=== PATIENT | female | born 1970 | race Caucasian/White ===

== ENCOUNTER 2020-06-14 09:21 | Day surgery (SDC) | payer MEDICARE, MEDICAID ==
[2020-06-11 16:17] LABS: BASOPHILS % (AUTO) 1 % (0-1); EOSINOPHILS % (AUTO) 2 % (1-7); LYMPHOCYTES % (AUTO) 22 % (22-44); MEAN CORPUSCULAR HEMOGLOBIN 30.4 pg (27.0-34.8); MEAN CORPUSCULAR HGB CONC 34.4 g/dL (32.4-35.8); MEAN PLATELET VOLUME 8.3 fL (7.4-10.4); MONOCYTES % (AUTO) 6 % (2-9); NEUTROPHILS % (AUTO) 70 % (42-75); PLATELET COUNT 291 x10^3/uL (130-400); RED CELL DISTRIBUTION WIDTH 15.1 % (9.6-15.2)
[2020-06-11 16:28] LABS: INTERNATIONAL NORMALIZED RATIO 1.02 (0.93-1.1); PROTHROMBIN TIME 10.9 Seconds (9.6-11.5)
[2020-06-11 16:30] LABS: ALBUMIN 3.8 g/dL (3.4-5.0); ANION GAP 8 mmol/L (5-15); CALCIUM 9.2 mg/dL (8.5-10.1); CHLORIDE 106 mmol/L (98-107)
[2020-06-11 16:34] LABS: ALANINE AMINOTRANSFERASE 54 U/L (12-78); ALKALINE PHOSPHATASE 82 U/L (45-117); BILIRUBIN,TOTAL 0.4 mg/dL (0.2-1.0); CREATININE 0.88 mg/dL (0.55-1.02); TOTAL PROTEIN 7.8 g/dL (6.4-8.2)
[~2020-06-14] VITALS: Ht 177.8 cm; Wt 146.5 kg
[~2020-06-14 09:21] MED LIST: BUPIVACAINE/PF 0.25% ONE; EPINEPHRINE 1 MG/ML, 1ML ONE; HEPARIN 1,000 UNITS/ML, 10ML ONE
[2020-06-14] MEDS ORDERED: CEFOTETAN PMX 2GM/50ML 50 ML IVPB ONE (10:00)
[2020-06-14] MEDS ORDERED: FAMO40TA61 PO (10:18)
[2020-06-14] MEDS ORDERED: PRAS25CA PO (10:18)
[2020-06-14] MEDS ORDERED: MORPHINE ER PO (10:18)
[2020-06-14] MEDS ORDERED: TAMS-11 PO (10:18)
[2020-06-14] MEDS ORDERED: BACL20TA PO (10:18)
[2020-06-14] MEDS ORDERED: METF500T17 PO (10:18)
[2020-06-14] MEDS ORDERED: ALPH300C PO (10:18)
[2020-06-14] MEDS ORDERED: SENN-99 PO (10:18)
[2020-06-14] MEDS ORDERED: ONDA4TAB7 PO (10:18)
[2020-06-14] MEDS ORDERED: LAMO150T3 PO (10:18)
[2020-06-14] MEDS ORDERED: ROSU10TA2 PO (10:18)
[2020-06-14] MEDS ORDERED: NALTREXONE PO (10:18)
[2020-06-14] MEDS ORDERED: [UNRECOGNIZED DRUG - OTHER] PO (10:18)
[2020-06-14] MEDS ORDERED: DIAZ5TAB4 PO (10:18)
[2020-06-14] MEDS ORDERED: DOCU250C9 PO (10:18)
[2020-06-14] MEDS ORDERED: MULT-658 PO (10:18)
[2020-06-14] MEDS ORDERED: NALO25TA4 PO (10:18)
[2020-06-14] MEDS ORDERED: CHOL10003 PO (10:18)
[2020-06-14] MEDS ORDERED: CRAN500T3 PO (10:18)
[2020-06-14] MEDS ORDERED: [UNRECOGNIZED DRUG - MIXTURE] PO (10:18)
[2020-06-14] MEDS ORDERED: [UNRECOGNIZED DRUG - OTHER] SL (10:18)
[2020-06-14] MEDS ORDERED: LACTATED RINGERS 1,000 ML IV SCH (10:30)
[2020-06-14] MEDS ORDERED: CHLORHEXIDINE 15 ML UDC PO ONE (10:30)
[2020-06-14 10:42] VITALS: BP 127/84
[2020-06-14] MEDS ORDERED: MIDAZOLAM 1 MG/ML, 2ML ONE (11:20)
[2020-06-14] MEDS ORDERED: FENTANYL PF 250 MCG/5ML ONE ×3 (11:20→14:13)
[2020-06-14] MEDS ORDERED: NEOSTIGMINE 1 MG/ML, 10ML ONE (11:21)
[2020-06-14] MEDS ORDERED: GLYCOPYRROLATE 0.2MG/1ML, 5ML ONE (11:21)
[2020-06-14] MEDS ORDERED: ROCURONIUM 10MG/ML,5ML ONE ×2 (11:21→13:11)
[2020-06-14] MEDS ORDERED: DEXAMETHASONE 4 MG/ML, 1ML ONE (11:21)
[2020-06-14] MEDS ORDERED: ONDANSETRON 2MG/ML, 2ML ONE (11:21)
[2020-06-14] MEDS ORDERED: PROPOFOL 10 MG/ML, 20ML ONE (11:21)
[2020-06-14] MEDS ORDERED: CEFOTETAN 2 GM ONE (12:26)
[2020-06-14] MEDS ORDERED: HYDROmorphone 1 MG/ML, 1ML INJ IVPush PRN (12:30)
[2020-06-14] MEDS ORDERED: PROMETHAZINE 25 MG/ML, 1ML IVPush PRN (12:30)
[2020-06-14] MEDS ORDERED: hydrALAzine 20 MG/ML, 1ML IV PRN (12:30)
[2020-06-14] MEDS ORDERED: morphine SULFATE 10 MG/ML, 1ML IVPush PRN ×2 (12:30→16:00)
[2020-06-14] MEDS ORDERED: MEPERIDINE/PF 25MG/0.5ML IVPush PRN ×2 (12:30→16:00)
[2020-06-14] MEDS ORDERED: FENTANYL PF 100 MCG/2ML IV PRN ×2 (12:30→16:00)
[2020-06-14] MEDS ORDERED: LABETALOL 5MG/ML, 20ML IV PRN (12:30)
[2020-06-14] MEDS ORDERED: HALOPERIDOL 5 MG/ML IV PRN (12:30)
[2020-06-14] MEDS ORDERED: HYDROmorphone 1 MG/ML, 1ML INJ ONE (14:14)
[2020-06-14] MEDS ORDERED: FENTANYL PF 100 MCG/2ML ONE (15:20)
[2020-06-14] MEDS ORDERED: SUGAMMADEX 200 MG/2 ML IVPush ONE (15:31)
[2020-06-14] MEDS ORDERED: HYDROmorphone 2 MG/ML, 1ML ONE (15:52)
[2020-06-14] MEDS: HYDROmorphone 1 MG/ML, 1ML INJ IVPush PRN ×2 (15:57→16:05)
[2020-06-14] MEDS ORDERED: hydrALAzine 20 MG/ML, 1ML ONE (16:11)
== END 2020-06-14 20:00 | disposition home or self-care (01) ==
LOC: OUT 09:21
PROVIDERS: ATTEND Obstetrics & Gynecology
DX: D27.1 Benign neoplasm of left ovary (principal); D27.0 Benign neoplasm of right ovary; N83.8 Other noninflammatory disorders of ovary, fallopian tube and broad ligament; N73.6 Female pelvic peritoneal adhesions (postinfective); E11.9 Type 2 diabetes mellitus without complications; E78.5 Hyperlipidemia, unspecified; K21.9 Gastro-esophageal reflux disease without esophagitis; J45.909 Unspecified asthma, uncomplicated; G43.909 Migraine, unspecified, not intractable, without status migrainosus; F17.210 Nicotine dependence, cigarettes, uncomplicated; E66.01 Morbid (severe) obesity due to excess calories; Z20.822 Contact with and (suspected) exposure to COVID-19; Z68.42 Body mass index [BMI] 45.0-49.9, adult; Z79.84 Long term (current) use of oral hypoglycemic drugs; Z79.01 Long term (current) use of anticoagulants; Z79.891 Long term (current) use of opiate analgesic; Z79.899 Other long term (current) drug therapy; Z88.5 Allergy status to narcotic agent; Z88.8 Allergy status to other drugs, medicaments and biological substances; Z90.49 Acquired absence of other specified parts of digestive tract; Z90.710 Acquired absence of both cervix and uterus; Z98.51 Tubal ligation status; Z80.42 Family history of malignant neoplasm of prostate
CPT/HCPCS: 36415; 58661; 71046; 80053; 82962; 85025; 85610; 85730; 86850; 86900; 86923; 88112; 88305; 88331; 93005; J0171; J0360; J1100; J1170; J1644; J2250; J2405; J2704; J2710; J3010; J7120; U0003